=== PATIENT | male | born 1995 | race Two or more races ===

== ENCOUNTER 2022-11-12 18:49 | Inpatient (IN) | payer MEDICAID, OTHER ==
[~2022-11-12] VITALS: Ht 170.2 cm; Wt 120.3 kg
[2022-11-12] MEDS ORDERED: MORPHINE SULFATE 4 MG/ML SYR/VIAL IV ONE (19:15)
[2022-11-12] MEDS ORDERED: ONDANSETRON HCL 4 MG/2 ML VIAL IV ONE (19:15)
[2022-11-12] MEDS ORDERED: SODIUM CHLORIDE 0.9% 1,000 ML IVB ONE (19:15)
[2022-11-12 19:41] LABS: Basophils # (auto) 0.1 10 ^3/uL (0-0.2); Basophils % (auto) 0.6 % (0.0-2.0); Eosinophils # (auto) 0.2 10 ^3/uL (0-0.8); Eosinophils % (auto) 1.4 % (0.0-7.0); Hematocrit 44.6 % (41.0-53.0); Hemoglobin 15.2 g/dL (13.5-17.5); Lymphocytes # (auto) 3.4 10 ^3/uL (0.4-5.4); Lymphocytes % (auto) 21.2 % (10.0-50.0); Mean Corpuscular Hemoglobin 30.2 pg (28.0-32.0); Mean Corpuscular Hgb Conc. 34.2 g/dL (32.0-36.0); Mean Corpuscular Volume 88.5 fL (80.0-100.0); Monocytes # (auto) 1.1 10 ^3/uL (0-1.3); Neutrophils # (auto) 11.4 10 ^3/uL (1.6-8.6); Neutrophils % (auto) 69.8 % (37.0-80.0); Nucleated Red Blood Cells % 0.1 %; Red Blood Cells 5.04 10^6/uL (4.5-5.90); Red Cell Distribution Width 14.1 % (11.8-14.3); White Blood Cell 16.3 10^3/uL (4.4-10.8)
[2022-11-12 19:46] LABS: Urine Bacteria FEW /hpf (None Seen); Urine Blood Negative /uL (Negative); Urine Budding Yeast OCCASIONAL /hpf (None Seen); Urine Specific Gravity 1.027 (1.001-1.035); Urine WBC 2 /hpf (0 - 3)
[2022-11-12 19:59] LABS: Albumin 3.7 g/dL (3.4-5.0); Calcium 8.8 mg/dL (8.5-10.1)
[2022-11-12 20:03] LABS: BUN/Creatinine Ratio 15.5 (10.0-20.0); Bilirubin, Total 0.4 mg/dL (0.2-1.0); Total Protein 8.4 g/dL (6.4-8.2)
[2022-11-12] MEDS ORDERED: metroNIDAZOLE 500MG/100ML 100 ML IV ONE (20:45)
[2022-11-12] MEDS ORDERED: cefTRIAXone 1GM/50ML D5W 50 ML IV ONE (21:00)
[2022-11-12] MEDS ORDERED: PANTOPRAZOLE 40 MG/10 ML VIAL INJ IV ONE (21:45)
[2022-11-12] MEDS ORDERED: ONDANSETRON HCL 4 MG/2 ML VIAL IV PRN (21:45)
[2022-11-12] MEDS ORDERED: MORPHINE SULFATE INJ 2 MG/ml SYRG IV PRN (21:45)
[2022-11-12] MEDS: metroNIDAZOLE 500MG/100ML 100 ML IV SCH (22:57)
[2022-11-12] MEDS: SODIUM CHLORIDE 0.9% 1,000 ML IV SCH (23:22)
[2022-11-13 06:44] LABS: Basophils # (auto) 0.1 10 ^3/uL (0-0.2); Basophils % (auto) 0.4 % (0.0-2.0); Eosinophils # (auto) 0.2 10 ^3/uL (0-0.8); Eosinophils % (auto) 1.4 % (0.0-7.0); Hematocrit 42.6 % (41.0-53.0); Hemoglobin 14.6 g/dL (13.5-17.5); Lymphocytes % (auto) 21.5 % (10.0-50.0); Mean Corpuscular Hemoglobin 30.5 pg (28.0-32.0); Mean Corpuscular Hgb Conc. 34.3 g/dL (32.0-36.0); Mean Corpuscular Volume 88.9 fL (80.0-100.0); Monocytes # (auto) 1.3 10 ^3/uL (0-1.3); Monocytes % (auto) 9.1 % (0.0-12.0); Neutrophils # (auto) 9.5 10 ^3/uL (1.6-8.6); Neutrophils % (auto) 67.6 % (37.0-80.0); Red Blood Cells 4.79 10^6/uL (4.5-5.90)
[2022-11-13 06:52] LABS: Albumin 3.8 g/dL (3.4-5.0); Potassium 4.2 mmol/L (3.5-5.1)
[2022-11-13 06:56] LABS: Bilirubin, Total 0.5 mg/dL (0.2-1.0); Total Protein 8.2 g/dL (6.4-8.2)
[2022-11-13 08:14] LABS: INR 1.03 (0.9-1.15); Partial Thromboplastin Time 30.2 sec (24.6-33.4)
[2022-11-13] MEDS: cefTRIAXone 1GM/50ML D5W 50 ML IV SCH (08:40)
[2022-11-13] MEDS: metroNIDAZOLE 500MG/100ML 100 ML IV SCH ×3 (08:40→21:39)
[2022-11-13] MEDS: PANTOPRAZOLE 40 MG/10 ML VIAL INJ IV SCH (08:40)
[2022-11-13] MEDS: SODIUM CHLORIDE 0.9% 1,000 ML IV SCH ×2 (08:52→21:40)
[2022-11-13 17:00] VITALS: BP 147/68
[2022-11-13 22:00] VITALS: BP 114/65
[2022-11-14 05:00] VITALS: BP 125/63
[2022-11-14] MEDS: metroNIDAZOLE 500MG/100ML 100 ML IV SCH ×3 (05:26→22:39)
[2022-11-14 09:00] VITALS: BP 140/65
[2022-11-14] MEDS: cefTRIAXone 1GM/50ML D5W 50 ML IV SCH (09:55)
[2022-11-14] MEDS: PANTOPRAZOLE 40 MG/10 ML VIAL INJ IV SCH (10:00)
[2022-11-14 13:00] VITALS: BP 127/65
[2022-11-14] MEDS: SODIUM CHLORIDE 0.9% 1,000 ML IV SCH ×2 (14:25→18:13)
[2022-11-14 17:00] VITALS: BP 119/61
[2022-11-14 22:00] VITALS: BP 137/82
[2022-11-15 05:00] VITALS: BP 136/72
[2022-11-15] MEDS: SODIUM CHLORIDE 0.9% 1,000 ML IV SCH ×2 (05:20→16:27)
[2022-11-15] MEDS: metroNIDAZOLE 500MG/100ML 100 ML IV SCH ×3 (06:13→22:17)
[2022-11-15 09:11] VITALS: BP 117/54
[2022-11-15] MEDS: PANTOPRAZOLE 40 MG/10 ML VIAL INJ IV SCH (09:15)
[2022-11-15] MEDS: cefTRIAXone 1GM/50ML D5W 50 ML IV SCH (09:15)
[2022-11-15 13:00] VITALS: BP 134/68
[2022-11-15 17:00] VITALS: BP 128/61
[2022-11-15 22:00] VITALS: BP 120/54
[2022-11-16 05:00] VITALS: BP 108/52
[2022-11-16] MEDS: SODIUM CHLORIDE 0.9% 1,000 ML IV SCH ×2 (05:14→14:41)
[2022-11-16] MEDS: metroNIDAZOLE 500MG/100ML 100 ML IV SCH ×3 (06:47→22:55)
[2022-11-16 08:00] VITALS: BP 110/51
[2022-11-16] MEDS: cefTRIAXone 1GM/50ML D5W 50 ML IV SCH (10:00)
[2022-11-16] MEDS: PANTOPRAZOLE 40 MG/10 ML VIAL INJ IV SCH ×2 (10:00→10:07)
[2022-11-16 12:00] VITALS: BP 124/64
[2022-11-16 16:00] VITALS: BP 126/69
[2022-11-16 17:19] VITALS: BP 126/69
[2022-11-16 22:00] VITALS: BP 143/78
[2022-11-17] MEDS: SODIUM CHLORIDE 0.9% 1,000 ML IV SCH ×2 (01:48→11:28)
[2022-11-17 05:00] VITALS: BP 120/58
[2022-11-17] MEDS: metroNIDAZOLE 500MG/100ML 100 ML IV SCH ×3 (06:06→21:39)
[2022-11-17 09:00] VITALS: BP 116/48
[2022-11-17] MEDS: cefTRIAXone 1GM/50ML D5W 50 ML IV SCH (10:09)
[2022-11-17] MEDS ORDERED: PANTOPRAZOLE 40 MG/10 ML VIAL INJ IV ONE (10:15)
[2022-11-17 13:00] VITALS: BP 134/69
[2022-11-17 17:00] VITALS: BP 127/61
[2022-11-17 22:00] VITALS: BP 123/70
[2022-11-18] MEDS: SODIUM CHLORIDE 0.9% 1,000 ML IV SCH ×3 (04:14→21:25)
[2022-11-18 05:00] VITALS: BP 120/55
[2022-11-18] MEDS: metroNIDAZOLE 500MG/100ML 100 ML IV SCH ×3 (06:51→21:19)
[2022-11-18 09:00] VITALS: BP 133/66
[2022-11-18] MEDS: PANTOPRAZOLE 40 MG/10 ML VIAL INJ IV SCH (09:47)
[2022-11-18] MEDS: cefTRIAXone 1GM/50ML D5W 50 ML IV SCH (09:47)
[2022-11-18 13:00] VITALS: BP 133/60
[2022-11-18 13:59] LABS: Basophils # (auto) 0.1 10 ^3/uL (0-0.2); Basophils % (auto) 0.7 % (0.0-2.0); Eosinophils # (auto) 0.2 10 ^3/uL (0-0.8); Eosinophils % (auto) 2.3 % (0.0-7.0); Hematocrit 45.3 % (41.0-53.0); Hemoglobin 15.2 g/dL (13.5-17.5); Lymphocytes # (auto) 3.1 10 ^3/uL (0.4-5.4); Lymphocytes % (auto) 29.8 % (10.0-50.0); Mean Corpuscular Hgb Conc. 33.5 g/dL (32.0-36.0); Mean Corpuscular Volume 89.6 fL (80.0-100.0); Monocytes # (auto) 0.8 10 ^3/uL (0-1.3); Monocytes % (auto) 7.6 % (0.0-12.0); Neutrophils # (auto) 6.3 10 ^3/uL (1.6-8.6); Neutrophils % (auto) 59.6 % (37.0-80.0); Nucleated Red Blood Cells % 0.1 %; Red Blood Cells 5.06 10^6/uL (4.5-5.90); Red Cell Distribution Width 13.8 % (11.8-14.3); White Blood Cell 10.5 10^3/uL (4.4-10.8)
[2022-11-18 14:28] LABS: INR 1.26 (0.9-1.15); Partial Thromboplastin Time 33.4 SEC (24.5-34.5)
[2022-11-18 17:00] VITALS: BP 139/81
[2022-11-18] MEDS ORDERED: LIDOCAINE 1% (LOCAL ANESTH.) PF 5ml SDV ID ONE (18:30)
[2022-11-18] MEDS: SODIUM CHLOR 0.9% PF (SALINE LOCK) 10ML VIAL/SYR IV SCH (21:19)
[2022-11-18 22:00] VITALS: BP 129/69
[2022-11-19 05:00] VITALS: BP 126/73
[2022-11-19] MEDS: metroNIDAZOLE 500MG/100ML 100 ML IV SCH ×3 (05:06→21:19)
[2022-11-19 09:00] VITALS: BP 129/63
[2022-11-19] MEDS: PANTOPRAZOLE 40 MG/10 ML VIAL INJ IV SCH (09:39)
[2022-11-19] MEDS: SODIUM CHLOR 0.9% PF (SALINE LOCK) 10ML VIAL/SYR IV SCH ×2 (09:39→21:19)
[2022-11-19] MEDS: cefTRIAXone 1GM/50ML D5W 50 ML IV SCH (09:39)
[2022-11-19] MEDS: SODIUM CHLORIDE 0.9% 1,000 ML IV SCH ×3 (09:41→23:47)
[2022-11-19 13:00] VITALS: BP 114/56
[2022-11-19 17:00] VITALS: BP 124/64
[2022-11-19 22:00] VITALS: BP 123/56
[2022-11-19] MEDS ORDERED: AMINO ACID INFUSION IN D10W 1,000 ML IV NR (22:45)
[2022-11-19] MEDS ORDERED: TPN PER PHARMACY 0 ML IV SCH (22:45)
[2022-11-19] MEDS ORDERED: DEXTROSE (50%) 50ML SYRG IV SCH (23:00)
[2022-11-19] MEDS: ACCU-CHEK COMFORT CURVE STRIP VI SCH (23:47)
[2022-11-19] MEDS: InsuLIN REG 1unit/0.01ml Soln (100units/ml) SC SCH (23:55)
[2022-11-20 05:00] VITALS: BP 114/96
[2022-11-20] MEDS: InsuLIN REG 1unit/0.01ml Soln (100units/ml) SC SCH ×3 (05:45→18:00)
[2022-11-20] MEDS: ACCU-CHEK COMFORT CURVE STRIP VI SCH ×3 (05:45→18:18)
[2022-11-20] MEDS: metroNIDAZOLE 500MG/100ML 100 ML IV SCH ×3 (05:45→22:56)
[2022-11-20 06:32] LABS: Magnesium 1.8 mg/dL (1.6-2.6); Potassium 3.2 mmol/L (3.5-5.1)
[2022-11-20 06:39] LABS: Albumin 3.1 g/dL (3.4-5.0); BUN/Creatinine Ratio 18.8 (10.0-20.0); Bilirubin, Total 0.9 mg/dL (0.2-1.0); Calcium 8.1 mg/dL (8.5-10.1); Phosphorus 2.9 mg/dL (2.5-4.90)
[2022-11-20 08:00] VITALS: BP 129/74
[2022-11-20] MEDS: SODIUM CHLOR 0.9% PF (SALINE LOCK) 10ML VIAL/SYR IV SCH ×2 (10:00→22:56)
[2022-11-20] MEDS: PANTOPRAZOLE 40 MG/10 ML VIAL INJ IV SCH (11:27)
[2022-11-20] MEDS: cefTRIAXone 1GM/50ML D5W 50 ML IV SCH (11:27)
[2022-11-20] MEDS ORDERED: POTASSIUM PHOSP 22MEQ(15MMOLE) in NS 100 ML IV ONE ×2 (11:30→21:00)
[2022-11-20 12:00] VITALS: BP 124/72
[2022-11-20 16:00] VITALS: BP 129/62
[2022-11-20] MEDS: SODIUM CHLORIDE 0.9% 1,000 ML IV SCH (18:45)
[2022-11-20] MEDS ORDERED: FAT EMULSION IV NR ×9 (20:00)
[2022-11-20] MEDS ORDERED: [UNRECOGNIZED DRUG - OTHER] IV NR ×9 (20:00)
[2022-11-20] MEDS ORDERED: POTASSIUM ACETATE IV NR ×9 (20:00)
[2022-11-20] MEDS ORDERED: POTASSIUM PHOSPHATE IV NR ×9 (20:00)
[2022-11-20 21:57] VITALS: BP 132/68
[2022-11-21] MEDS: ACCU-CHEK COMFORT CURVE STRIP VI SCH ×4 (00:01→18:01)
[2022-11-21] MEDS: InsuLIN REG 1unit/0.01ml Soln (100units/ml) SC SCH ×4 (00:06→18:00)
[2022-11-21 04:30] VITALS: BP 107/58
[2022-11-21] MEDS: metroNIDAZOLE 500MG/100ML 100 ML IV SCH ×3 (05:49→22:04)
[2022-11-21 06:12] LABS: Albumin 3.4 g/dL (3.4-5.0); Calcium 8.4 mg/dL (8.5-10.1); Magnesium 2.4 mg/dL (1.6-2.6); Potassium 3.3 mmol/L (3.5-5.1)
[2022-11-21 06:16] LABS: BUN/Creatinine Ratio 16.9 (10.0-20.0); Bilirubin, Total 0.5 mg/dL (0.2-1.0); Phosphorus 3.3 mg/dL (2.5-4.90); Total Protein 7.4 g/dL (6.4-8.2)
[2022-11-21 08:00] VITALS: BP 109/53
[2022-11-21] MEDS: cefTRIAXone 1GM/50ML D5W 50 ML IV SCH (10:47)
[2022-11-21] MEDS: PANTOPRAZOLE 40 MG/10 ML VIAL INJ IV SCH (10:47)
[2022-11-21] MEDS: SODIUM CHLOR 0.9% PF (SALINE LOCK) 10ML VIAL/SYR IV SCH ×2 (10:48→22:04)
[2022-11-21 12:00] VITALS: BP 116/71
[2022-11-21] MEDS: POTASSIUM CHL 20MEQ/100ML 100 ML IV SCH ×2 (12:23→14:27)
[2022-11-21 16:00] VITALS: BP 117/78
[2022-11-21] MEDS: SODIUM CHLORIDE 0.9% 1,000 ML IV SCH (16:36)
[2022-11-21] MEDS ORDERED: TPN PER PHARMACY IV NR ×10 (20:00)
[2022-11-21 22:00] VITALS: BP 122/73
[2022-11-22] MEDS: ACCU-CHEK COMFORT CURVE STRIP VI SCH ×5 (00:02→23:19)
[2022-11-22] MEDS: InsuLIN REG 1unit/0.01ml Soln (100units/ml) SC SCH ×5 (00:06→23:18)
[2022-11-22 05:00] VITALS: BP 104/57
[2022-11-22] MEDS: metroNIDAZOLE 500MG/100ML 100 ML IV SCH ×3 (05:50→21:16)
[2022-11-22 06:46] LABS: Potassium 3.5 mmol/L (3.5-5.1)
[2022-11-22 06:53] LABS: Albumin 3.2 g/dL (3.4-5.0); BUN/Creatinine Ratio 14.3 (10.0-20.0); Calcium 8.8 mg/dL (8.5-10.1); Magnesium 2.2 mg/dL (1.6-2.6)
[2022-11-22 06:57] LABS: Bilirubin, Total 0.3 mg/dL (0.2-1.0); Phosphorus 3.5 mg/dL (2.5-4.90); Total Protein 7.5 g/dL (6.4-8.2)
[2022-11-22 09:00] VITALS: BP 107/58
[2022-11-22] MEDS ORDERED: POTASSIUM CHL 20MEQ/100ML 100 ML IV ONE (09:30)
[2022-11-22] MEDS: cefTRIAXone 1GM/50ML D5W 50 ML IV SCH (09:31)
[2022-11-22] MEDS: SODIUM CHLOR 0.9% PF (SALINE LOCK) 10ML VIAL/SYR IV SCH ×2 (09:31→21:16)
[2022-11-22] MEDS: PANTOPRAZOLE 40 MG/10 ML VIAL INJ IV SCH (09:31)
[2022-11-22] MEDS: SODIUM CHLORIDE 0.9% 1,000 ML IV SCH (09:32)
[2022-11-22 17:08] VITALS: BP 117/68
[2022-11-22] MEDS ORDERED: TPN PER PHARMACY IV NR ×10 (20:00)
[2022-11-22 22:00] VITALS: BP 121/69
[2022-11-23 05:00] VITALS: BP 103/70
[2022-11-23] MEDS: ACCU-CHEK COMFORT CURVE STRIP VI SCH ×4 (05:48→23:28)
[2022-11-23] MEDS: metroNIDAZOLE 500MG/100ML 100 ML IV SCH ×3 (05:49→21:50)
[2022-11-23] MEDS: InsuLIN REG 1unit/0.01ml Soln (100units/ml) SC SCH ×4 (05:54→23:31)
[2022-11-23] MEDS: SODIUM CHLORIDE 0.9% 1,000 ML IV SCH ×2 (06:33→09:36)
[2022-11-23 08:51] LABS: Albumin 3.5 g/dL (3.4-5.0); Calcium 8.8 mg/dL (8.5-10.1); Magnesium 2.6 mg/dL (1.6-2.6); Potassium 4.1 mmol/L (3.5-5.1)
[2022-11-23 08:56] LABS: Bilirubin, Total 0.3 mg/dL (0.2-1.0); Phosphorus 2.9 mg/dL (2.5-4.90); Total Protein 7.7 g/dL (6.4-8.2)
[2022-11-23 09:00] VITALS: BP 115/60
[2022-11-23] MEDS: cefTRIAXone 1GM/50ML D5W 50 ML IV SCH (09:34)
[2022-11-23] MEDS: PANTOPRAZOLE 40 MG/10 ML VIAL INJ IV SCH (09:34)
[2022-11-23] MEDS: SODIUM CHLOR 0.9% PF (SALINE LOCK) 10ML VIAL/SYR IV SCH ×2 (09:34→21:51)
[2022-11-23 13:00] VITALS: BP 122/66
[2022-11-23 17:27] VITALS: BP 123/56
[2022-11-23] MEDS ORDERED: TPN PER PHARMACY IV NR ×9 (20:00)
[2022-11-23 22:00] VITALS: BP 119/66
[2022-11-24 05:00] VITALS: BP 128/51
[2022-11-24] MEDS: metroNIDAZOLE 500MG/100ML 100 ML IV SCH ×3 (05:18→21:14)
[2022-11-24] MEDS: InsuLIN REG 1unit/0.01ml Soln (100units/ml) SC SCH ×4 (05:21→23:28)
[2022-11-24] MEDS: ACCU-CHEK COMFORT CURVE STRIP VI SCH ×4 (05:21→23:26)
[2022-11-24 06:52] LABS: Albumin 3.2 g/dL (3.4-5.0); Bilirubin, Total 0.3 mg/dL (0.2-1.0); Calcium 8.3 mg/dL (8.5-10.1); Magnesium 2.4 mg/dL (1.6-2.6); Phosphorus 3.6 mg/dL (2.5-4.90); Total Protein 7.2 g/dL (6.4-8.2)
[2022-11-24] MEDS: PANTOPRAZOLE 40 MG/10 ML VIAL INJ IV SCH (08:27)
[2022-11-24] MEDS: cefTRIAXone 1GM/50ML D5W 50 ML IV SCH (08:28)
[2022-11-24] MEDS: SODIUM CHLOR 0.9% PF (SALINE LOCK) 10ML VIAL/SYR IV SCH ×2 (08:28→21:15)
[2022-11-24 10:15] VITALS: BP 125/64
[2022-11-24 14:38] VITALS: BP 126/72
[2022-11-24 17:29] VITALS: BP 114/44
[2022-11-24] MEDS ORDERED: TPN PER PHARMACY IV NR ×9 (20:00)
[2022-11-24 22:00] VITALS: BP 130/68
[2022-11-25 05:00] VITALS: BP 109/56
[2022-11-25] MEDS: InsuLIN REG 1unit/0.01ml Soln (100units/ml) SC SCH ×3 (05:44→18:33)
[2022-11-25] MEDS: ACCU-CHEK COMFORT CURVE STRIP VI SCH ×3 (05:44→18:00)
[2022-11-25] MEDS: metroNIDAZOLE 500MG/100ML 100 ML IV SCH ×3 (05:45→21:24)
[2022-11-25] MEDS: SODIUM CHLORIDE 0.9% 1,000 ML IV SCH (07:01)
[2022-11-25 07:30] LABS: Potassium 3.9 mmol/L (3.5-5.1)
[2022-11-25 07:36] LABS: Albumin 3.2 g/dL (3.4-5.0); BUN/Creatinine Ratio 16.7 (10.0-20.0); Calcium 8.7 mg/dL (8.5-10.1); Magnesium 2.2 mg/dL (1.6-2.6); Phosphorus 3.2 mg/dL (2.5-4.90)
[2022-11-25 09:00] VITALS: BP 127/61
[2022-11-25] MEDS: PANTOPRAZOLE 40 MG/10 ML VIAL INJ IV SCH (11:11)
[2022-11-25] MEDS: SODIUM CHLOR 0.9% PF (SALINE LOCK) 10ML VIAL/SYR IV SCH ×2 (11:11→21:24)
[2022-11-25 12:19] LABS: Basophils # (auto) 0.1 10 ^3/uL (0-0.2); Basophils % (auto) 0.6 % (0.0-2.0); Eosinophils # (auto) 0.3 10 ^3/uL (0-0.8); Eosinophils % (auto) 3.6 % (0.0-7.0); Hematocrit 43.5 % (41.0-53.0); Hemoglobin 14.2 g/dL (13.5-17.5); Lymphocytes # (auto) 3.1 10 ^3/uL (0.4-5.4); Lymphocytes % (auto) 33.9 % (10.0-50.0); Mean Corpuscular Hemoglobin 29.4 pg (28.0-32.0); Mean Corpuscular Hgb Conc. 32.7 g/dL (32.0-36.0); Mean Corpuscular Volume 89.8 fL (80.0-100.0); Monocytes # (auto) 0.8 10 ^3/uL (0-1.3); Monocytes % (auto) 8.2 % (0.0-12.0); Neutrophils # (auto) 4.9 10 ^3/uL (1.6-8.6); Neutrophils % (auto) 53.7 % (37.0-80.0); Nucleated Red Blood Cells % 0.1 %; Red Blood Cells 4.85 10^6/uL (4.5-5.90); Red Cell Distribution Width 14.3 % (11.8-14.3); White Blood Cell 9.2 10^3/uL (4.4-10.8)
[2022-11-25 12:45] LABS: BUN/Creatinine Ratio 15.2 (10.0-20.0); Calcium 8.8 mg/dL (8.5-10.1)
[2022-11-25 13:00] VITALS: BP 120/56
[2022-11-25 17:00] VITALS: BP 126/60
[2022-11-25] MEDS ORDERED: POTASSIUM PHOSPHATE IV NR ×10 (20:00)
[2022-11-25] MEDS ORDERED: POTASSIUM ACETATE IV NR ×10 (20:00)
[2022-11-25] MEDS ORDERED: [UNRECOGNIZED DRUG - OTHER] IV NR ×10 (20:00)
[2022-11-25] MEDS ORDERED: SODIUM ACETATE IV NR ×10 (20:00)
[2022-11-25 22:00] VITALS: BP 127/53
[2022-11-26] MEDS: ACCU-CHEK COMFORT CURVE STRIP VI SCH ×5 (00:12→23:09)
[2022-11-26] MEDS: InsuLIN REG 1unit/0.01ml Soln (100units/ml) SC SCH ×5 (00:14→23:09)
[2022-11-26 05:00] VITALS: BP 98/60
[2022-11-26] MEDS: SODIUM CHLORIDE 0.9% 1,000 ML IV SCH ×2 (06:14→14:45)
[2022-11-26] MEDS: metroNIDAZOLE 500MG/100ML 100 ML IV SCH ×2 (06:15→14:18)
[2022-11-26 06:59] LABS: Albumin 3.2 g/dL (3.4-5.0); Calcium 8.8 mg/dL (8.5-10.1); Magnesium 2.4 mg/dL (1.6-2.6); Potassium 4.2 mmol/L (3.5-5.1)
[2022-11-26 07:04] LABS: BUN/Creatinine Ratio 15.9 (10.0-20.0); Bilirubin, Total 0.3 mg/dL (0.2-1.0); Phosphorus 3.2 mg/dL (2.5-4.90); Total Protein 7.3 g/dL (6.4-8.2)
[2022-11-26 09:00] VITALS: BP 106/56
[2022-11-26] MEDS: PANTOPRAZOLE 40 MG/10 ML VIAL INJ IV SCH (11:44)
[2022-11-26] MEDS: SODIUM CHLOR 0.9% PF (SALINE LOCK) 10ML VIAL/SYR IV SCH ×2 (11:45→21:03)
[2022-11-26 13:00] VITALS: BP 110/58
[2022-11-26 16:46] VITALS: BP 116/61
[2022-11-26] MEDS ORDERED: [UNRECOGNIZED DRUG - OTHER] IV NR ×10 (20:00)
[2022-11-26] MEDS ORDERED: FAT EMULSION IV NR ×10 (20:00)
[2022-11-26] MEDS ORDERED: SODIUM ACETATE IV NR ×10 (20:00)
[2022-11-26] MEDS ORDERED: POTASSIUM ACETATE IV NR ×10 (20:00)
[2022-11-26 22:00] VITALS: BP 113/65
[2022-11-27 05:00] VITALS: BP 116/52
[2022-11-27] MEDS: InsuLIN REG 1unit/0.01ml Soln (100units/ml) SC SCH ×4 (05:49→23:36)
[2022-11-27] MEDS: ACCU-CHEK COMFORT CURVE STRIP VI SCH ×4 (05:49→23:36)
[2022-11-27 07:08] LABS: Potassium 4.2 mmol/L (3.5-5.1)
[2022-11-27 07:13] LABS: Albumin 3.4 g/dL (3.4-5.0); BUN/Creatinine Ratio 16.9 (10.0-20.0); Bilirubin, Total 0.4 mg/dL (0.2-1.0); Magnesium 2.6 mg/dL (1.6-2.6); Phosphorus 3.5 mg/dL (2.5-4.90); Total Protein 7.5 g/dL (6.4-8.2)
[2022-11-27 09:00] VITALS: BP 120/72
[2022-11-27] MEDS: SODIUM CHLORIDE 0.9% 1,000 ML IV SCH ×2 (10:45→13:49)
[2022-11-27] MEDS: SODIUM CHLOR 0.9% PF (SALINE LOCK) 10ML VIAL/SYR IV SCH ×2 (11:20→21:25)
[2022-11-27] MEDS ORDERED: cefTRIAXone 1GM/50ML D5W 50 ML IV ONE (12:15)
[2022-11-27 13:00] VITALS: BP 109/55
[2022-11-27] MEDS: metroNIDAZOLE 500MG/100ML 100 ML IV SCH ×2 (16:28→21:25)
[2022-11-27 17:00] VITALS: BP 124/64
[2022-11-27] MEDS ORDERED: TPN PER PHARMACY IV NR ×8 (20:00)
[2022-11-27 22:00] VITALS: BP 114/63
[2022-11-28 05:00] VITALS: BP 106/56
[2022-11-28] MEDS: InsuLIN REG 1unit/0.01ml Soln (100units/ml) SC SCH ×3 (06:00→17:36)
[2022-11-28] MEDS: metroNIDAZOLE 500MG/100ML 100 ML IV SCH ×3 (06:13→21:03)
[2022-11-28] MEDS: ACCU-CHEK COMFORT CURVE STRIP VI SCH ×3 (06:13→17:35)
[2022-11-28 06:49] LABS: Potassium 4.1 mmol/L (3.5-5.1)
[2022-11-28 07:07] LABS: Albumin 3.5 g/dL (3.4-5.0); BUN/Creatinine Ratio 15.9 (10.0-20.0); Calcium 8.9 mg/dL (8.5-10.1); Magnesium 2.1 mg/dL (1.6-2.6)
[2022-11-28 07:10] LABS: Bilirubin, Total 0.5 mg/dL (0.2-1.0); Phosphorus 3.9 mg/dL (2.5-4.90); Total Protein 7.7 g/dL (6.4-8.2)
[2022-11-28 10:13] VITALS: BP 112/58
[2022-11-28] MEDS: cefTRIAXone 1GM/50ML D5W 50 ML IV SCH (10:30)
[2022-11-28] MEDS: SODIUM CHLOR 0.9% PF (SALINE LOCK) 10ML VIAL/SYR IV SCH ×2 (10:31→21:04)
[2022-11-28 16:30] VITALS: BP 119/68
[2022-11-28] MEDS ORDERED: TPN PER PHARMACY IV NR ×9 (20:00)
[2022-11-28 22:00] VITALS: BP 127/76
[2022-11-29] MEDS: ACCU-CHEK COMFORT CURVE STRIP VI SCH ×4 (00:07→17:02)
[2022-11-29 05:00] VITALS: BP 125/68
[2022-11-29] MEDS: metroNIDAZOLE 500MG/100ML 100 ML IV SCH ×3 (05:13→21:05)
[2022-11-29] MEDS: SODIUM CHLORIDE 0.9% 1,000 ML IV SCH ×2 (05:13→22:45)
[2022-11-29] MEDS: InsuLIN REG 1unit/0.01ml Soln (100units/ml) SC SCH ×4 (06:00→17:02)
[2022-11-29 06:37] LABS: Potassium 4.2 mmol/L (3.5-5.1)
[2022-11-29 06:47] LABS: Albumin 3.3 g/dL (3.4-5.0); BUN/Creatinine Ratio 15.9 (10.0-20.0); Calcium 8.8 mg/dL (8.5-10.1); Magnesium 2.2 mg/dL (1.6-2.6)
[2022-11-29 06:50] LABS: Bilirubin, Total 0.3 mg/dL (0.2-1.0); Total Protein 7.2 g/dL (6.4-8.2)
[2022-11-29 08:00] VITALS: BP 135/70
[2022-11-29 09:00] VITALS: BP 135/70
[2022-11-29] MEDS: cefTRIAXone 1GM/50ML D5W 50 ML IV SCH (09:36)
[2022-11-29] MEDS: SODIUM CHLOR 0.9% PF (SALINE LOCK) 10ML VIAL/SYR IV SCH ×2 (09:36→22:00)
[2022-11-29 12:54] VITALS: BP 138/62
[2022-11-29 16:57] VITALS: BP 113/65
[2022-11-29] MEDS ORDERED: ACCU-CHEK COMFORT CURVE STRIP VI SCH (18:00)
[2022-11-29] MEDS ORDERED: TPN PER PHARMACY IV NR ×10 (20:00)
[2022-11-29 22:00] VITALS: BP 130/78
[2022-11-30 05:00] VITALS: BP 130/63
[2022-11-30] MEDS: metroNIDAZOLE 500MG/100ML 100 ML IV SCH ×2 (05:41→13:45)
[2022-11-30 06:22] LABS: Albumin 3.1 g/dL (3.4-5.0); Calcium 8.7 mg/dL (8.5-10.1)
[2022-11-30 06:27] LABS: BUN/Creatinine Ratio 13.2 (10.0-20.0); Bilirubin, Total 0.3 mg/dL (0.2-1.0); Magnesium 2.3 mg/dL (1.6-2.6); Phosphorus 3.4 mg/dL (2.5-4.90); Total Protein 6.9 g/dL (6.4-8.2)
[2022-11-30 09:00] VITALS: BP 127/70
[2022-11-30] MEDS: cefTRIAXone 1GM/50ML D5W 50 ML IV SCH (09:30)
[2022-11-30] MEDS ORDERED: MET500T PO (09:37)
[2022-11-30] MEDS ORDERED: CIPR-173 PO (09:37)
[2022-11-30] MEDS: SODIUM CHLOR 0.9% PF (SALINE LOCK) 10ML VIAL/SYR IV SCH (10:39)
[2022-11-30 12:28] VITALS: BP 111/84
== END 2022-11-30 15:55 | disposition home or self-care (01) | DRG 244 ==
LOC: ER 18:49 → OVERFLOW 21:44 → CENTRAL 11-13 15:52
PROVIDERS: ADMIT Nurse Practitioner; ATTEND Internal Medicine Geriatric Medicine
PROC: 05HY33Z Insertion of Infusion Device into Upper Vein, Percutaneous Approach (ICD-10-PCS; principal; 2022-11-18)
PROC: B54MZZA Ultrasonography of Right Upper Extremity Veins, Guidance (ICD-10-PCS; 2022-11-18)
DX: K57.20 Diverticulitis of large intestine with perforation and abscess without bleeding (principal); E11.9 Type 2 diabetes mellitus without complications; F17.200 Nicotine dependence, unspecified, uncomplicated; Z81.8 Family history of other mental and behavioral disorders; Z82.49 Family history of ischemic heart disease and other diseases of the circulatory system
CPT/HCPCS: 36415; 36569; 74176; 80048; 80053; 80069; 81001; 82962; 83690; 83735; 84100; 84478; 85025; 85610; 85730; 87081; C9113; G0378; J0696; J1815; J3480; J3490; J7131